=== PATIENT | female | born 1980 | race Caucasian/White ===

== ENCOUNTER → 2019-05-19 | Emergency (ER) | payer OTHER ==
[~2019-05-19] VITALS: Ht 157.5 cm; Wt 98.0 kg
[~2019-05-19] MED LIST: KETO10TA2 PO; LOSARTAN-HCTZ1 EACH
== END | disposition home or self-care (01) ==
LOC: ER 20:56
DX: N83.291 Other ovarian cyst, right side (principal); R10.2 Pelvic and perineal pain

== ENCOUNTER → 2020-08-08 | Outpatient (CLI) | payer OTHER | END | disposition home or self-care (01) | LOC: RX STUDY 11:18 | DX: N80.8 Other endometriosis (principal); N94.4 Primary dysmenorrhea ==

== ENCOUNTER 2023-02-20 23:05 | Inpatient (IN) | payer OTHER ==
[~2023-02-20] VITALS: Ht 157.5 cm; Wt 83.0 kg
[2023-02-20] MEDS ORDERED: NIFEDIPINE ER30 M1 PO (23:23)
[2023-02-20] MEDS ORDERED: LABETALOL HCL100 MG PO (23:23)
--- NOTE | 2023-02-20 23:28 | NUR ---
SE RECIBE FEMINA ALERTA Y ORIENTADA X3 QUIEN REFIERE DOLOR EN FLANCO DERECHO QUE IRRADIA A ESPALDA BAJA. SE MIDEN S/V Y SE UBICA
--- NOTE | 2023-02-21 02:23 | NUR ---
PTE ALERTA Y ORIENTADA X3 EN ZAHRA CON BARANDAS ELEVADAS. PTE CANALIZADA AREA ALEXANDRA DE EDEMA Y DE ENROJECIMIENTO. SE LE FABRIZIO MUESTRAS DE LAB. DIVINE ORDEN MEDICA BAJO MEDIDAS ASEPTICAS. SE ADMINISTRAN MEDICAMENTOS DIVINE ORDEN MEDICA Y SE EDUCA SOBRE TRATAMIENTO MEDICO. PTE MANEJADO POR SUNIL.
== END 2023-02-23 13:29 | disposition home or self-care (01) | DRG 446 ==
LOC: ER 23:05 → MEDI 02-21 17:03
PROVIDERS: ADMIT Internal Medicine; ATTEND Internal Medicine
DX: K80.00 Calculus of gallbladder with acute cholecystitis without obstruction (principal); E86.0 Dehydration; K52.89 Other specified noninfective gastroenteritis and colitis; I10 Essential (primary) hypertension; Z20.822 Contact with and (suspected) exposure to COVID-19

== ENCOUNTER 2023-02-24 01:34 | Inpatient (IN) | payer OTHER ==
[~2023-02-24] VITALS: Ht 152.4 cm; Wt 83.0 kg
[~2023-02-24 01:34] MED LIST changes: +LABETALOL HCL100 MG PO; +NIFEDIPINE ER30 M1 PO
== END 2023-02-28 13:27 | disposition home or self-care (01) | DRG 446 ==
LOC: ER 01:34 → MEDJ 17:08 → MEDI 02-25 14:31
PROVIDERS: ADMIT Internal Medicine; ATTEND Internal Medicine
PROC: BW40ZZZ Ultrasonography of Abdomen (ICD-10-PCS; principal; 2023-02-24)
DX: K80.80 Other cholelithiasis without obstruction (principal); K52.9 Noninfective gastroenteritis and colitis, unspecified; R10.11 Right upper quadrant pain; Z20.822 Contact with and (suspected) exposure to COVID-19

== ENCOUNTER 2024-12-21 12:42 | Emergency (ER) | payer OTHER ==
[~2024-12-21] VITALS: Ht 157.5 cm; Wt 89.8 kg
[2024-12-21] MEDS ORDERED: LABETALOL HCL100 MG (12:55)
[2024-12-21] MEDS ORDERED: NASAL MIST126 ML (12:56)
[2024-12-21] MEDS ORDERED: NIFEDIPINE20 MG (12:56)
[2024-12-21] MEDS ORDERED: ORPHENADRINE CITRATE 30 MG/ML AMPUL IM STA (13:40)
[2024-12-21] MEDS ORDERED: KETOROLAC TROMETHAMINE 60 MG VIAL IM STA (13:40)
== END 2024-12-21 16:55 | disposition home or self-care (01) ==
LOC: ER 12:45
DX: G44.209 Tension-type headache, unspecified, not intractable (principal); I10 Essential (primary) hypertension; Z91.013 Allergy to seafood